=== PATIENT | male | born 1990 | race Caucasian/White ===

== ENCOUNTER 2021-07-30 17:56 | Emergency (ER) | payer MEDICAID ==
[~2021-07-30] VITALS: Ht 188 cm; Wt 150.0 kg
[~2021-07-30 17:56] MED LIST: NEOM10DR11 OT
--- NOTE | 2021-07-30 18:24 | ED Upper Extremity ---
General Chief Complaint: Upper Extremity Stated Complaint: RIGHT HAND SWELLING,PAIN Source: patient Exam Limitations: no limitations History of Present Illness Date Seen by Provider: Jul 30, 2021 Time Seen by Provider: 18:21 Initial Comments Patient is a 31-year-old male presents ED with right hand and wrist pain. Patient states on he injured his right hand and wrist after falling on extended out right hand. He reports pain and discomfort along the right medial palmar hand, distal radius and ulna. Pain progressively got worse especially over the past 2 weeks. Intermittent swelling. Has been using a Jimmy wrap for the past 6 weeks without much improvement. States he is wearing the Jimmy wrap 30/12. Denies taking anything for pain. He denies being seen after the fall for further evaluation. No history of previous fractures. Reports intermittent discoloration. Denies any redness. For some pain and discomfort with movement of his digits. Allergies and Home Medications Allergies Coded Allergies: cephalexin (Verified Allergy, Mild, 12/10/15) Patient Home Medication List Home Medication List Reviewed: Yes Hydrochlorothiazide (Hydrochlorothiazide) 12.5 Mg Tablet, 12.5 MG PO DAILY Prescribed by: MAXWELL NICOLE on 07/30/211919 Naproxen (Naproxen) 500 Mg Tablet.dr, 500 MG PO BID Prescribed by: MAXWELL NICOLE on 07/30/211919 Neomycin Lunsford/Colist/Hc/Thonzon (Cortisporin-Tc Ear Susp) 10 Ml Drops.susp, 4 DROPS OT QID Prescribed by: ДМИТРИЙ BEATTY on 12/10/15 0543 Review of Systems Constitutional: No chills, No diaphoresis, No dizziness, No fever, No malaise EENTM: No ear pain, No eye pain, No throat pain, No throat swelling Respiratory: No cough, No dyspnea on exertion, No short of breath Cardiovascular: No chest pain Gastrointestinal: No abdominal pain, No diarrhea, No nausea, No vomiting Genitourinary: No decreased output, No dysuria, No frequency Musculoskeletal: joint pain, joint swelling Skin: change in color; No change in hair/nails All Other Systems Reviewed Negative Unless Noted: Yes Past Krmqjfz-Motaiv-Vriokx Hx Seasonal Allergies Seasonal Allergies: No Past Medical History Reproductive Disorders: No Sexually Transmitted Disease: No HIV/AIDS: No Adverse Reaction/Blood Tranf: No Physical Exam Vital Signs Vital Signs - First Documented 07/30/21 18:16 Temp 36.7 Pulse 110 Resp 17 B/P (MAP) 189/124 (145) Capillary Refill : Height, Weight, BMI Height: 5'11" Weight: 300lbs. oz. 136.967642yq; BMI Method:Stated General Appearance: WD/WN, no apparent distress HEENT: PERRL/EOMI, normal ENT inspection, TMs normal, pharynx normal Neck: non-tender, full range of motion, supple, normal inspection Cardiovascular: regular rate, rhythm, no edema, no gallop, no JVD Respiratory: chest non-tender, lungs clear, normal breath sounds, no respiratory distress, no accessory muscle use Gastrointestinal: normal bowel sounds, non tender, soft, no organomegaly Back: normal inspection, no CVA tenderness Shoulder: normal inspection, non-tender Elbow/Forearm: normal inspection, non-tender, no evidence of injury Wrist: Yes bone tenderness, Yes swelling Hand: Right, bone tenderness, limited ROM, soft tissue tenderness, stiffness, swelling Neurologic/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 Pain over the past several weeks. States he fell and extended out right hand landed awkwardly on his right hand and wrist. Located pain to the distal radius, ulna and fifth metacarpal. Mild swelling noted compared to his left hand. Intermittent swelling with hand pain worse with movement. Neurovascular intact. Equal pulses noted bilateral. X-ray shows a Remote healed 5th metacarpal fracture. No new or acute osseous abnormality demonstrated. Patient has been wearing the Jimmy wrap 30/12. Attempted to use a Velcro splint however patient has a large hand and wrist. Jimmy wrap was applied. Recommend orthopedic outpatient follow-up. He has not been taking anti-inflammatories which would help with the swelling. Not able to rule out any ligament or tendon injury however this is likely more secondary to healing fracture. Return precaution were discussed. Patient was hypertensive here. Strong family history of hypertension. Denies of any history of kidney disease. No visual changes, chest pain, change in urination. Patient is overweight. Discussed weight changes. Increase exercising. Patient was requesting to start on medication. I Was not able to check kidney function at this time as he did not want to wait for lab work. Will discharge with hydrochlorothiazide but will need to establish care with primary care physician before starting medication. Continue monitoring blood pressure. Establish care with [facility]. Orthopedic outpatient follow-up for the hand. Impression Primary Impression: Hand pain Additional Impression: Elevated blood pressure reading Disposition: HOME, SELF-CARE Condition: Stable Departure-Patient Inst. Decision time for Depature: 19:18 Referrals: [facility]/OMER CISNEROS,LOCAL PHYSICIAN (PCP) Primary Care Physician FRANCY ALLEN MD Patient Instructions: Hand Pain Scripts Hydrochlorothiazide (Hydrochlorothiazide) 12.5 Mg Tablet 12.5 MG PO DAILY, #20 TAB Prov: MAMADOU WRIGHT 07/30/21 Naproxen (Naproxen) 500 Mg Tablet. 500 MG PO BID, #20 TAB Prov: MAMADOU WRIGHT 07/30/21 MAMADOU WRIGHT Jul 30, 2021 18:24
--- NOTE | 2021-07-30 18:57 | Diagnostic Imaging Report ---
INDICATION: Fall. Right hand pain. Distal radius tenderness. FINDINGS: Alignment of the hand appears appropriate. The distal radius and ulna demonstrate no cortical disruption or fracture. Carpals normally aligned. There is no carpal fracture. There is a remote healed fracture of the 5th metacarpal. There is no joint dislocation or evidence of significant arthritic change. There is no soft tissue foreign body. IMPRESSION: 1. Remote healed 5th metacarpal fracture. No new or acute osseous abnormality demonstrated. Dictated by: Dictated on workstation # [id number]
--- NOTE | 2021-07-30 19:00 | Diagnostic Imaging Report ---
INDICATION: Injury in June with continued pain in the distal radius. EXAMINATION: Right wrist from 07/30/2021. FINDINGS: There is an old fracture of the fifth metacarpal. There are no acute fractures or dislocations. Joint spaces are preserved. IMPRESSION: 1. No acute process. Dictated by: Dictated on workstation # [id number]
[2021-07-30] MEDS ORDERED: HYDR12.56 PO (19:20)
[2021-07-30] MEDS ORDERED: NAPR500T8 PO (19:20)
[2021-07-30 19:44] VITALS: BP 189/124
== END 2021-07-30 19:45 | disposition home or self-care (01) ==
LOC: EDUNIT# 17:56 → ER 18:00
DX: M79.641 Pain in right hand (principal); R03.0 Elevated blood-pressure reading, without diagnosis of hypertension
CPT/HCPCS: 73110; 73130

== ENCOUNTER 2021-07-31 17:46 | Emergency (ER) | payer MEDICAID ==
[~2021-07-31 17:46] MED LIST changes: +HYDR12.56 PO; +NAPR500T8 PO
--- NOTE | 2021-07-31 18:13 | ED General ---
General Stated Complaint: ELEV BP Source of Information: Patient History of Present Illness Date Seen by Provider: Jul 31, 2021 Time Seen by Provider: 18:03 Initial Comments PT ARRIVES VIA POV FROM HOME C/O ELEVATED BLOOD PRESSURE PT WAS SEEN IN ER YESTERDAY FOR RIGHT HAND INJURY--PT HAD FALLEN ON AND INJURED RIGHT HAND, DID NOT SEEK CARE UNTIL YESTERDAY AND WAS DX WITH HEALING METACARPAL FRACTURE. IT WAS NOTED YESTERDAY THAT HIS BLOOD PRESSURE WAS ELEVATED AND PT WAS GIVEN A PRESCRIPTION FOR BLOOD PRESSURE MEDICATION--HYDROCHLOROTHIAZIDE. STATES HE TOOK FIRST DOSE TODAY AT 10 AM WAS ALSO GIVE RX FOR NAPROXEN FOR HAND PAIN, BUT HAS NOT TAKEN ANY OF IT. PT ALSO WAS SEEN AT [facility] TODAY TO ESTABLISH CARE, BP WAS 150/110 AT THAT VISIT. WAS GIVEN A BLOOD PRESSURE MONITOR PT STATES HIS HEAD HAS FELT "CLOUDY" ALL DAY, HAS FELT SLIGHTLY NAUSEATED, AND NO ENERGY TODAY. STATES HE CHECKED HIS BP THIS EVENING WHEN HE WAS FEELING BAD, AND IT WAS 186/122, SO HE CAME HER, HE WAS ADVISED BY [facility]--WAS TOLD TO GO TO ER IF BP >180 SYSTOLIC STATES AFTER HE LEFT HERE YESTERDAY, HE GOT NAUSEATED, VOMITED AND THEN HAD A NOSEBLEED. HAS NOT HAD VOMITING TODAY OR A NOSE BLEED TODAY STATES "I TRIED TO TAKE A NAP AND I COULDN'T SLEEP" NO HEADACHE NO DIZZINESS NO VISION CHANGES NO PARESTHESIAS OR MOTOR DEFICITS NO CHEST PAIN NO SHORTNESS OF BREATH NO PALPITATIONS PT HAS NOT SEEN A DR IN MANY YEARS, PRIOR TO YESTERDAY HAS NOT HAD HIS BLOOD PRESSURE CHECKED IN MANY YEARS PT SMOKED CIGARETTES, UNTIL AGE OF 21 PT SMOKES AND VAPES MARIJUANA 3-4 TIMES A DAY EVERY DAY PT HAS A HISTORY OF SMOKING METH, CLAIMS NO USE FOR 2 YEARS PT DRINKS ALCOHOL A COUPLE OF TIMES A WEEK PCP: [facility] Allergies and Home Medications Allergies Coded Allergies: cephalexin (Verified Allergy, Mild, 12/10/15) Patient Home Medication List Home Medication List Reviewed: Yes Hydrochlorothiazide (Hydrochlorothiazide) 12.5 Mg Tablet, 12.5 MG PO DAILY Prescribed by: MAXWELL NICOLE on 07/30/21 192 Naproxen (Naproxen) 500 Mg Tablet.dr, 500 MG PO BID Prescribed by: MAXWELL NICOLE on 07/30/211919 Neomycin [place]/Colist/Hc/Thonzon (Cortisporin-Tc Ear Susp) 10 Ml Drops.susp, 4 DROPS OT QID Prescribed by: ДМИТРИЙ BEATTY on 12/10/15 0543 Review of Systems Review of Systems Constitutional: see HPI; No dizziness; malaise EENTM: no symptoms reported Cardiovascular: see HPI; No chest pain, No edema, No palpitations, No syncope, No other Gastrointestinal: see HPI, nausea, vomiting Genitourinary: no symptoms reported Musculoskeletal: see HPI Skin: no symptoms reported Psychiatric/Neurological: No Symptoms Reported; Denies Headache, Denies Numbness, Denies Paresthesia, Denies Seizure, Denies Tingling, Denies Tremors, Denies Weakness Hematologic/Lymphatic: No Symptoms Reported Immunological/Allergic: no symptoms reported Past Hrpethi-Fdfezz-Ntqbat Hx Patient Social History Tobacco Use?: Yes Tobacco type used: Cigarettes Use of E-Cig and/or Vaping dev: Yes E-Cig or Vaping type used: Marijuana Use of E-Cig and/or Vaping Patrice: Current Everyday User Substance use?: Yes Substance type: Methamphetamine, Marijuana Substance frequency: Daily Alcohol Use?: Yes Alcohol type: Beer, Hard Liquor Alcohol Frequency: Couple times a week Seasonal Allergies Seasonal Allergies: No Past Medical History Surgeries: Yes (URETHRAL DILATION CHILD) Bladder Surgery Respiratory: No Cardiac: Yes Hypertension Neurological: No Reproductive Disorders: No Sexually Transmitted Disease: No HIV/AIDS: No Genitourinary: Yes (URETHRAL DILATION CHILD) Gastrointestinal: No Musculoskeletal: Yes (FX RIGHT HAND 06/09/2021) Fractures Endocrine: Yes (OBESE) HEENT: No Cancer: No Psychosocial: No Integumentary: Yes (TATTOOS) Blood Disorders: No Adverse Reaction/Blood Tranf: No Family Medical History SOCIAL HISTORY: -SMOKED CIGARETTES UNTIL AGE 21 -SMOKES AND VAPES MARIJUANA 3-4 TIMES A DAY EVERY DAY. ALSO HAS HISTORY OF SMOKING METH, CLAIMS NONE FOR 2 YEARS ON 07/31/21 -DRINKS ALCOHOL A COUPLE OF TIMES A WEEK Physical Exam Vital Signs Vital Signs - First Documented 07/31/21 17:57 Temp 35.9 Pulse 91 Resp 20 B/P (MAP) 131/115 (120) Pulse Ox 97 O2 Delivery Room Air Capillary Refill : Height, Weight, BMI Height: 5'11" Weight: 300lbs. oz. 136.378379my; 42.00 BMI Method:Stated General Appearance: No Apparent Distress, WD/WN, Obese, Other (UNKEMPT, FLAT AFFECT.) HEENT: PERRL/EOMI Neck: Normal Inspection Respiratory: Normal Breath Sounds, No Accessory Muscle Use, No Respiratory Distress Cardiovascular: Regular Rate, Rhythm, No Edema, No JVD, No Murmur, Normal Peripheral Pulses Gastrointestinal: Non Tender, Soft Back: Normal Inspection Extremity: Normal Capillary Refill, No Calf Tenderness, No Pedal Edema, Other (RIGHT HAND WRAPPED WITH FARIHA WRAP; MOTOR/SENSORY/VASCULAR INTACT. TENDERNESS OVER 5TH METACARPAL AREA. ) Neurologic/Psychiatric: Alert, Oriented x3, No Motor/Sensory Deficits, district superintendent II- XII Norm as Tested; No Abnormal Cerebellar Tests; Other (FLAT AFFECT) Skin: Normal Color, Warm/Dry, Tattoos/Piercings (TATTOOS) Progress/Results/Core Measures Suspected Sepsis SIRS Temperature: Pulse: Respiratory Rate: Laboratory Tests 07/31/21 18:10: White Blood Count 11.8H Blood Pressure / Mean: Laboratory Tests 07/31/21 18:10: Creatinine 0.82, Platelet Count 235, Total Bilirubin 0.7 Results/Orders Lab Results Laboratory Tests Test 07/31/21 18:10 07/31/21 18:26 Range/Units White Blood Count 11.8 H 4.3-11.0 10^3/uL Red Blood Count 6.24 H 4.30-5.52 10^6/uL Hemoglobin 17.7 13.3-17.7 g/dL Hematocrit 53 40-54 % Mean Corpuscular Volume 85 80-99 fL Mean Corpuscular Hemoglobin 28 25-34 pg Mean Corpuscular Hemoglobin Concent 34 32-36 g/dL Red Cell Distribution Width 13.1 10.0-14.5 % Platelet Count 235 130-400 10^3/uL Mean Platelet Volume 9.6 9.0-12.2 fL Immature Granulocyte % (Auto) 1 % Neutrophils (%) (Auto) 69 42-75 % Lymphocytes (%) (Auto) 21 12-44 % Monocytes (%) (Auto) 8 0-12 % Eosinophils (%) (Auto) 1 0-10 % Basophils (%) (Auto) 1 0-10 % Neutrophils # (Auto) 8.1 H 1.8-7.8 10^3/uL Lymphocytes # (Auto) 2.5 1.0-4.0 10^3/uL Monocytes # (Auto) 0.9 0.0-1.0 10^3/uL Eosinophils # (Auto) 0.1 0.0-0.3 10^3/uL Basophils # (Auto) 0.1 0.0-0.1 10^3/uL Immature Granulocyte # (Auto) 0.1 0.0-0.1 10^3/uL Sodium Level 134 L 135-145 MMOL/L Potassium Level 3.9 3.6-5.0 MMOL/L Chloride Level 99 98-107 MMOL/L Carbon Dioxide Level 24 21-32 MMOL/L Anion Gap 11 5-14 MMOL/L Blood Urea Nitrogen 9 7-18 MG/DL Creatinine 0.82 0.60-1.30 MG/DL Estimat Glomerular Filtration Rate 120 BUN/Creatinine Ratio 11 Glucose Level 109 H 70-105 MG/DL Calcium Level 9.8 8.5-10.1 MG/DL Corrected Calcium 8.5-10.1 MG/DL Magnesium Level 2.0 1.6-2.4 MG/DL Total Bilirubin 0.7 0.1-1.0 MG/DL Aspartate Amino Transf (AST/SGOT) 93 H 5-34 U/L Alanine Aminotransferase (ALT/SGPT) 181 H 0-55 U/L Alkaline Phosphatase 79 40-136 U/L Total Protein 8.4 H 6.4-8.2 GM/DL Albumin 4.7 H 3.2-4.5 GM/DL TSH [place] Testing 2.32 0.35-4.94 UIU/ML Urine Color YELLOW Urine Clarity CLEAR Urine pH 6.0 5-9 Urine Specific [place] 1.010 L 1.016-1.022 Urine Protein NEGATIVE NEGATIVE Urine Glucose (UA) NEGATIVE NEGATIVE Urine Ketones NEGATIVE NEGATIVE Urine Nitrite NEGATIVE NEGATIVE Urine Bilirubin NEGATIVE NEGATIVE Urine Urobilinogen 0.2 < = 1.0 MG/DL Urine Leukocyte Esterase NEGATIVE NEGATIVE Urine RBC (Auto) NEGATIVE NEGATIVE Urine RBC NONE /HPF Urine WBC RARE /HPF Urine Crystals PRESENT H /LPF Urine Amorphous Sediment RARE CARLITOS URATES H /LPF Urine Bacteria NEGATIVE /HPF Urine Casts NONE /LPF Urine Mucus NEGATIVE /LPF Urine Culture Indicated NO Urine Opiates Screen NEGATIVE NEGATIVE Urine Oxycodone Screen NEGATIVE NEGATIVE Urine Methadone Screen NEGATIVE NEGATIVE Urine Propoxyphene Screen NEGATIVE NEGATIVE Urine Barbiturates Screen NEGATIVE NEGATIVE Ur Tricyclic Antidepressants Screen NEGATIVE NEGATIVE Urine Phencyclidine Screen NEGATIVE NEGATIVE Urine Amphetamines Screen NEGATIVE NEGATIVE Urine Methamphetamines Screen NEGATIVE NEGATIVE Urine Benzodiazepines Screen NEGATIVE NEGATIVE Urine Cocaine Screen NEGATIVE NEGATIVE Urine Cannabinoids Screen POSITIVE H NEGATIVE My Orders Orders - ДМИТРИЙ BEATTY DO Ed Iv/Invasive Line Start (07/31/21 18:07) Ekg Tracing (07/31/21 18:07) Monitor-Rhythm Ecg Trace Only (07/31/21 18:07) Cbc With Automated Diff (07/31/21 18:07) Comprehensive Metabolic Panel (07/31/21 18:07) Drug Screen Stat (Urine) (07/31/21 18:07) Magnesium (07/31/21 18:07) Thyroid Analyzer (07/31/21 18:07) Ua Culture If Indicated (07/31/21 18:07) Chest 1 View, Ap/Pa Only (07/31/21 18:07) Hydralazine Injection (Apresoline Inject (07/31/21 18:15) Vital Signs/I&O 07/31/21 17:57 Temp 35.9 Pulse 91 Resp 20 B/P (MAP) 131/115 (120) Pulse Ox 97 O2 Delivery Room Air Capillary Refill : Progress Note : Progress Note BP DOWN TO 134/74 SHORTLY AFTER ARRIVAL, NO TREATMENT AT THIS TIME BP 134/68 PRIOR TO DISMISSAL, WITHOUT TREATMENT PT STATES SHE FEELS MUCH BETTER--NO NAUSEA, DOES NOT FEEL "CLOUDY IN THE HEAD". AND HAS NO COMPLAINTS PT STATES HE HAS A FOLLOW UP APPOINTMENT AT [facility] THIS Friday08/02/21 FOR RECHECK AND LAB, ETC. ECG Initial ECG Impression Date: Jul 31, 2021 Initial ECG Impression Time: 18:13 Initial ECG Rate: 89 Initial ECG Rhythm: Normal Sinus Initial ECG Comparisson: No Previous ECG Available Diagnostic Imaging Comments CXR--NO ACUTE PROCESS, PER RADIOLOGIST REPORT AT 1828 Reviewed: Reviewed by Me Departure Impression Primary Impression: HTN (hypertension) Additional Impressions: Elevated liver enzymes Marijuana use Disposition: 01 HOME, SELF-CARE Condition: Stable Departure-Patient Inst. Decision time for Depature: 19:00 Referrals: [facility] (PCP/Family) Primary Care Physician Patient Instructions: DASH Diet, High Blood Pressure ED, Liver Function Test, Marijuana Use and Addiction (DC) Add. Discharge Instructions: CONTINUE BLOOD PRESSURE MEDICATION PRESCRIBED FOLLOW UP WITH [facility] THIS WEEK SCHEDULED, RETURN TO ER IF YOUR SYMPTOMS WORSEN ДМИТРИЙ BEATTY DO Jul 31, 2021 18:13
[2021-07-31] MEDS ORDERED: hydrALAZINE (APESOLINE) 20 MG/ML VIAL IV ONE (18:15)
[2021-07-31 18:18] LABS: BASOPHILS # (AUTO) 0.1 10^3/uL (0.0-0.1); BASOPHILS % (AUTO) 1 % (0-10); EOSINOPHILS # (AUTO) 0.1 10^3/uL (0.0-0.3); EOSINOPHILS % (AUTO) 1 % (0-10); HEMATOCRIT 53 % (40-54); HEMOGLOBIN 17.7 g/dL (13.3-17.7); LYMPHOCYTES # (AUTO) 2.5 10^3/uL (1.0-4.0); LYMPHOCYTES % (AUTO) 21 % (12-44); MEAN CORPUSCULAR HEMOGLOBIN 28 pg (25-34); MEAN CORPUSCULAR HGB CONC 34 g/dL (32-36); MEAN CORPUSCULAR VOLUME 85 fL (80-99); MEAN PLATELET VOLUME 9.6 fL (9.0-12.2); MONOCYTES # (AUTO) 0.9 10^3/uL (0.0-1.0); MONOCYTES % (AUTO) 8 % (0-12); NEUTROPHILS # (AUTO) 8.1 10^3/uL (1.8-7.8); NEUTROPHILS % (AUTO) 69 % (42-75); PLATELET COUNT 235 10^3/uL (130-400); WHITE BLOOD COUNT 11.8 10^3/uL (4.3-11.0)
[2021-07-31 18:21] LABS: ALBUMIN 4.7 GM/DL (3.2-4.5)
[2021-07-31 18:22] LABS: CHLORIDE 99 MMOL/L (98-107); POTASSIUM 3.9 MMOL/L (3.6-5.0); SODIUM 134 MMOL/L (135-145)
[2021-07-31 18:23] LABS: CALCIUM 9.8 MG/DL (8.5-10.1)
[2021-07-31 18:24] LABS: GLUCOSE 109 MG/DL (70-105); TOTAL PROTEIN 8.4 GM/DL (6.4-8.2)
[2021-07-31 18:25] LABS: CARBON DIOXIDE 24 MMOL/L (21-32)
[2021-07-31 18:26] LABS: BILIRUBIN,TOTAL 0.7 MG/DL (0.1-1.0)
--- NOTE | 2021-07-31 18:26 | Diagnostic Imaging Report ---
INDICATION: Elevated blood pressure. TIME OF EXAM: 6:14 PM COMPARISON: No prior studies are available for comparison. Cardiac silhouette is somewhat enlarged, likely owing to portable technique. Lungs appear to be clear. No infiltrates are seen. There is no effusion or pneumothorax. IMPRESSION: No acute cardiopulmonary process is detected. Dictated by: Dictated on workstation # [id number]
[2021-07-31 18:27] LABS: ALKALINE PHOSPHATASE 79 U/L (40-136)
[2021-07-31 18:28] LABS: CREATININE SERUM 0.82 MG/DL (0.60-1.30); GFR ESTIMATED 120
[2021-07-31 18:29] LABS: BUN/CREATININE RATIO 11
[2021-07-31 18:30] LABS: ALANINE AMINOTRANSFERASE 181 U/L (0-55)
[2021-07-31 18:35] LABS: BILIRUBIN,URINE NEGATIVE (NEGATIVE); CLARITY,URINE CLEAR; COLOR,URINE YELLOW; GLUCOSE, URINE (UA) NEGATIVE (NEGATIVE); KETONES,URINE NEGATIVE (NEGATIVE); LEUKOCYTE ESTERASE ,URINE NEGATIVE (NEGATIVE); NITRITE,URINE NEGATIVE (NEGATIVE); PROTEIN,URINE NEGATIVE (NEGATIVE)
[2021-07-31 18:42] LABS: AMORPHOUS SEDIMENT,UR RARE AMOR URATES /LPF; BACTERIA,URINE NEGATIVE /HPF; WBC,URINE RARE /HPF
[2021-07-31 18:43] LABS: AMPHETAMINE SCREEN, URINE NEGATIVE (NEGATIVE); BARBITURATE SCREEN URINE NEGATIVE (NEGATIVE); BENZODIAZEPINES SCREEN URINE NEGATIVE (NEGATIVE); CANNABINOID SCREEN, URINE POSITIVE (NEGATIVE); COCAINE SCREEN URINE NEGATIVE (NEGATIVE); METHADONE STAT NEGATIVE (NEGATIVE); METHAMPHETAMINE SCREEN URINE S NEGATIVE (NEGATIVE); OPIATE SCREEN URINE NEGATIVE (NEGATIVE); OXYCODONE STAT NEGATIVE (NEGATIVE); PROPOXYPHENE STAT NEGATIVE (NEGATIVE); TRICYCLIC ANTIDEPRESSANTS SCRE NEGATIVE (NEGATIVE)
[2021-07-31 18:51] LABS: TSH (THYROID ANALYZER) 2.32 UIU/ML (0.35-4.94)
[2021-07-31 19:17] VITALS: BP 134/68
== END 2021-07-31 19:19 | disposition home or self-care (01) ==
LOC: EDUNIT# 17:46 → ER 17:49
DX: I10 Essential (primary) hypertension (principal); R74.8 Abnormal levels of other serum enzymes; F12.90 Cannabis use, unspecified, uncomplicated; E66.9 Obesity, unspecified; F17.210 Nicotine dependence, cigarettes, uncomplicated; Z68.41 Body mass index [BMI] 40.0-44.9, adult
CPT/HCPCS: 36415; 71045; 80053; 80306; 81000; 83735; 84443; 85025; 93005; 93041

== ENCOUNTER 2022-11-02 08:12 | Emergency (ER) | payer MEDICAID ==
[~2022-11-02] VITALS: Ht 177.8 cm; Wt 137.4 kg
[2022-11-02 08:26] VITALS: BP 147/94
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
[2022-11-02 09:40] LABS: BASOPHILS # (AUTO) 0.1 10^3/uL (0.0-0.1); BASOPHILS % (AUTO) 1 % (0-10); EOSINOPHILS # (AUTO) 0.1 10^3/uL (0.0-0.3); EOSINOPHILS % (AUTO) 1 % (0-10); HEMATOCRIT 52 % (40-54); HEMOGLOBIN 17.7 g/dL (13.3-17.7); LYMPHOCYTES # (AUTO) 1.9 10^3/uL (1.0-4.0); LYMPHOCYTES % (AUTO) 24 % (12-44); MEAN CORPUSCULAR HEMOGLOBIN 29 pg (25-34); MEAN CORPUSCULAR HGB CONC 34 g/dL (32-36); MEAN CORPUSCULAR VOLUME 85 fL (80-99); MEAN PLATELET VOLUME 10.4 fL (9.0-12.2); MONOCYTES # (AUTO) 0.6 10^3/uL (0.0-1.0); MONOCYTES % (AUTO) 8 % (0-12); NEUTROPHILS # (AUTO) 5.2 10^3/uL (1.8-7.8); NEUTROPHILS % (AUTO) 66 % (42-75); PLATELET COUNT 244 10^3/uL (130-400); WHITE BLOOD COUNT 7.8 10^3/uL (4.3-11.0)
[2022-11-02 09:53] LABS: ALBUMIN 4.7 GM/DL (3.2-4.5); CHLORIDE 105 MMOL/L (98-107); POTASSIUM 4.2 MMOL/L (3.6-5.0); SODIUM 139 MMOL/L (135-145)
[2022-11-02 09:56] LABS: GLUCOSE 105 MG/DL (70-105); TOTAL PROTEIN 7.7 GM/DL (6.4-8.2)
[2022-11-02 09:57] LABS: CARBON DIOXIDE 23 MMOL/L (21-32)
[2022-11-02 09:58] LABS: BILIRUBIN,TOTAL 0.6 MG/DL (0.1-1.0)
[2022-11-02 10:00] LABS: ALKALINE PHOSPHATASE 68 U/L (40-136); CREATININE SERUM 0.94 MG/DL (0.60-1.30); GFR ESTIMATED 110
[2022-11-02 10:01] LABS: BUN/CREATININE RATIO 9
[2022-11-02 10:02] LABS: ACETAMINOPHEN < 10 UG/ML (10-30); SALICYLATE < 5.0 MG/DL (5.0-20.0)
[2022-11-02 10:03] LABS: ALANINE AMINOTRANSFERASE 67 U/L (0-55)
== END 2022-11-02 10:35 | disposition left against medical advice (07) ==
LOC: ER 08:12 → EDUNIT# 08:12 → ER 10:35
DX: R45.851 Suicidal ideations (principal); F32.A Depression, unspecified; E66.9 Obesity, unspecified; F17.290 Nicotine dependence, other tobacco product, uncomplicated; Z68.41 Body mass index [BMI] 40.0-44.9, adult
CPT/HCPCS: 80053; 85025; 99283; G0480 ×3; 36415; 80320; 80329